=== PATIENT | male | born 1960 | race Caucasian/White ===

== ENCOUNTER 2024-03-07 14:33 | Emergency (ER) | payer OTHER, SELFPAY ==
[2024-03-07 14:33] VITALS: BMI 34.6
[2024-03-07 14:34] VITALS: BP 170/100
[2024-03-07 14:55] LABS: % Basophils 0.7 % (0-2); % Eosinophils 3.2 % (0-6); % Immature Granulocytes 0.2 % (0-0.5); % Lymphocytes 16.4 % (20.5-51.1); % Monocytes 8.5 % (1.7-9.3); Absolute Basophils 0.1 10^3/uL (0-0.2); Absolute Eosinophils 0.3 10^3/uL (0-0.7); Absolute Lymphocytes 1.3 10^3/uL (1.2-3.4); Absolute Monocytes 0.7 10^3/uL (0.1-0.6); Absolute Neutrophils 5.7 10^3/uL (1.4-6.5); Hemoglobin 14.9 g/dL (13.0-18.0); Mean Corp Hgb Conc. 35.5 g/dL (33.0-37.0); Mean Corpuscular Hgb 31.4 pg (27.0-31.0); Mean Corpuscular Volume 88.6 fL (80.0-94.0); Mean Platelet Volume 10.6 fL (7.4-10.4); Nucleated Red Blood Cells % 0 % (-); Platelet Count 233 10^3/uL (130-400); Red Blood Cell Count 4.74 10^6/uL (4.70-6.10); Red Cell Dist. Width 12.9 % (11.5-14.5)
[2024-03-07 15:10] LABS: ALT (SGPT) 22 U/L (0-50); AST (SGOT) 26 U/L (17-59); Albumin 4.4 g/dl (3.5-5.0); Alkaline Phosphatase 110 U/L (38-126); Blood Urea Nitrogen 19 mg/dl (9-20); Calcium 9.7 mg/dl (8.4-10.2); Carbon Dioxide 28 mmol/L (22-30); Chloride 104 mmol/L (98-107); Glucose 128 mg/dl (70-99); Potassium 4.3 mmol/L (3.5-5.1); Sodium 137 mmol/L (135-145); Total Bilirubin 0.8 mg/dl (0.2-1.3); Total Protein 6.9 g/dl (6.3-8.2); eGFR > 60.00
--- NOTE | 2024-03-07 16:07 | ED.SKININJ ---
HPI-Injury
<Chelsea Luz DICTATING MACHINE TYPIST - Last Filed: 03/08/24 10:22>
General
Chief Complaint: Skin Problem
Source: patient
Exam Limitations: none
Time Seen by Provider: 03/07/24 16:06
Nursing documentation reviewed up to this point in time: agreed with
History of Present Illness-Injury
Initial Injury comments:
64-year-old male with history of HTN, HLD presents stating he fell 4 rungs off a ladder 10 days ago, scraping his left ragland causing a superficial linear scrape. Next day went on a golf outing, has been washing and applying antibiotic ointment, doing
his usual ADL's, area becoming more red and swelling distally. Went to 4 days ago and put on Keflex 1000 mg BID has had 9 doses. Continues his ADL's, wading in his pool intermittently, and yesterday noted it was more swollen and more painful to
weight bear. Gets intermittent shooting pains in the ragland. Denies fever/chills. Admits he has not been elevating the leg as instructed at . Has also noted bruising of the tops of toes 2,3,4,5 and a band of discoloration across top of ankle that
has resolved. From abrasion to foot and ankle remain swollen.
Past History
<Chelsea Luz DICTATING MACHINE TYPIST - Last Filed: 03/08/24 10:22>
Past History
ED Past Medical History: HTN and Hypercholesterolemia
Social History
Tobacco: Non-smoker
Alcohol: Occasional
Personal:
Living: with family
Employment: Employed
Review of Systems
<Chelsea Luz DICTATING MACHINE TYPIST - Last Filed: 03/08/24 10:22>
Review of Systems
Allergies reviewed?: Yes
All Other Systems: ROS reviewed and negative except as documented in HPI and ROS
Constitutional: Denies fever or chills
Skin: Reports other (abrasion left ragland, swelling and mild erythema surrounding abrasion, edema ankle and foot)
Neurological: Reports no symptoms
Phy Exam
<Chelsea Luz DICTATING MACHINE TYPIST - Last Filed: 03/08/24 10:22>
General Physical Exam
General Presentation: well appearing and no apparent distress
General Skin: warm and dry
General Habitus: normal
General Mental: alert
General Hydration: appears well hydrated
Cardiovascular Exam
Cardiovascular Exam: regular rate/rhythm
Heart Sounds: normal
Pulmonary Exam
Pulmonary Exam: lungs clear
Musculoskeletal Exam
Musculoskeletal Exam: full ROM, edema (left lower leg below mid ragland abrasion) and neuro vasc intact
Skin Exam
Skin Exam: normal color, warm/dry and other (3 cm vertical abrasion intact scab. Surrounding mild swelling and redness to 4 cm out. No drainage. No lymphangitis. No calf tenderness. Mid calf to and ankle and dorsum of foot with +1 edema. Old
ecchymosis dorsum toes 2,3,4 of left foot)
Psychiatric Exam
Psychiatric Exam: normal mood/affect
Course
<Chelsea Luz, DICTATING MACHINE TYPIST - Last Filed: 03/08/24 10:22>
Orders/Labs/Results
Orders:
Orders
03/07/24 14:45
CMP [Comprehensive Metabolic Panel] Urgent
Complete Blood Count/With Diff Urgent
03/07/24 16:40
US Periph Venous LOWER Ext LT Urgent
Comment:
Reason For Exam: ankle, leg swelling, redness after ragland contusion
Abnormal Lab Results
03/07/24
14:45
MCH 31.4 H pg
(27.0-31.0)
MPV 10.6 H fL
(7.4-10.4)
Absolute Monos (auto) 0.7 H 10^3/uL
(0.1-0.6)
Lymphocytes % 16.4 L %
(20.5-51.1)
Glucose 128 H mg/dl
(70-99)
03/07/24 14:45
03/07/24 14:45
Vital Signs
Initial and Last Documented VS:
Initial Vital Signs
Temp Pulse Resp BP Pulse Ox
98.1 F 82 16 170/100 96
03/07/24 14:34 03/07/24 14:34 03/07/24 14:34 03/07/24 14:34 03/07/24 14:34
Last Documented Vital Signs
Temp Pulse Resp BP Pulse Ox
98.1 F 82 16 148/94 96
03/07/24 14:34 03/07/24 14:34 03/07/24 14:34 03/07/24 20:10 03/07/24 14:34
<AMAURI Macdonald - Last Filed: 03/07/24 20:06>
Orders/Labs/Results
Orders:
Orders
03/07/24 14:45
CMP [Comprehensive Metabolic Panel] Urgent
Complete Blood Count/With Diff Urgent
03/07/24 16:40
US Periph Venous LOWER Ext LT Urgent
Comment:
Reason For Exam: ankle, leg swelling, redness after ragland contusion
Abnormal Lab Results
03/07/24
14:45
MCH 31.4 H pg
(27.0-31.0)
MPV 10.6 H fL
(7.4-10.4)
Absolute Monos (auto) 0.7 H 10^3/uL
(0.1-0.6)
Lymphocytes % 16.4 L %
(20.5-51.1)
Glucose 128 H mg/dl
(70-99)
03/07/24 14:45
03/07/24 14:45
Vital Signs
Initial and Last Documented VS:
Initial Vital Signs
Temp Pulse Resp BP Pulse Ox
98.1 F 82 16 170/100 96
03/07/24 14:34 03/07/24 14:34 03/07/24 14:34 03/07/24 14:34 03/07/24 14:34
Last Documented Vital Signs
Temp Pulse Resp BP Pulse Ox
98.1 F 82 16 148/94 96
03/07/24 14:34 03/07/24 14:34 03/07/24 14:34 03/07/24 20:10 03/07/24 14:34
<Chelsea Luz, DICTATING MACHINE TYPIST - Last Filed: 03/08/24 10:22>
MDM/Problems Addressed
MDM/Problems Addressed:
64-year-old male with history of HTN, HLD presents stating he fell 4 rungs off a ladder 10 days ago, scraping his left ragland causing a superficial linear scrape. Next day went on a golf outing, has been washing and applying antibiotic ointment, doing
his usual ADL's, washed two cars yesterday, area becoming more red and swelling distally. y. Went to 4 days ago, had neg xray and put on Keflex 1000 mg BID has had 9 doses. Continues his ADL's, wading in his pool intermittently, and yesterday
noted it was more swollen and more painful to weight bear. Gets intermittent shooting pains in the ragland. Denies fever/chills. Admits he has not been elevating the leg as instructed at . Has also noted bruising of the tops of toes 2,3,4,5 and a
band of discoloration across top of ankle that has resolved. From abrasion to foot and ankle remain swollen.
Afebrile
He has been pretty active on his injured ragland
Exam consistent with contusion/hematoma mid ragland, dependent edema and bruising of tops of toes.
Inflammation immediately around the scab, redness and swelling distally, may be early cellulitis, not improving on the Keflex.
Encouraged to REST, compression stocking, elevate.
Change antibiotic to Doxycycline 100 BID x 7 days.
US neg for DVT
Chronic conditions affecting care: HTN
<AMAURI Macdonald - Last Filed: 03/07/24 20:06>
*Radiology
Radiology exam reviewed: radiology read reviewed (US- No sonographic evidence for left lower extremity deep venous thrombosis. )
*Critical Care Note
Total Time (30-74mins, 75-104mins- exclusive of procedures): Not Applicable
ED Attending Note
<Chelsea Luz NP - Last Filed: 03/08/24 10:22>
-
Portions of this chart may have been created with voice recognition software.� Occasional wrong word or��sound alike� substitutions may have occurred due to the inherent limitations of voice recognition software.
Discharge Plan
Departure
Patient Disposition: Home (Routine Discharge)
Date of Disposition: 03/07/24
Time of Disposition: 20:06
Patient with high blood pressure during this ER visit?: Yes
Condition: Good
Covid-19: Not Applicable
Discharge Problem:
Contusion of left lower leg, Abrasion of left lower leg, Pain and swelling of left lower leg
Instructions: Swelling, Cellulitis (Skin Infection), Adult (DC)
Prescriptions:
New
doxycycline hyclate 100 mg capsule
100 mg PO BID Qty: 14 0RF
No Action
latanoprost 0.005 % Drops
1 drp BOTH EYES QPM
atorvastatin 20 mg Tablet
20 mg PO HS
Theragen Tablet
1 tab PO DAILY
aspirin 81 mg Tablet,Delayed Release (Dr/Ec)
81 mg PO DAILY
amlodipine 10 mg Tablet
10 mg PO DAILY
cephalexin 500 mg Capsule
1,000 mg PO BID
Patient Comments:
03/07/24: filled 03/03/24 for 40 capsules, to take 2 capsules twice a day for 10 days
lisinopril 10 mg Tablet
10 mg PO DAILY
timolol maleate 0.5 % Gel Forming Solution
1 drp BOTH EYES DAILY
Referrals:
Adri Crawford, DO [Family Provider] - Follow up in 5-7 days
Activity Restrictions/Additional Instructions:
As we discussed, your ultrasound shows no clots
Stop the Keflex and start the Doxycycline.
I sent a prescription to your pharmacy for Doxycycline 100 mg twice daily for 7 days.
REST with the foot elevated to the level of or slightly above your heart as much as you can in the next 2 days to help minimize swelling.
Wear compression stocking until swelling is improved.
No lengthy walking or standing until swelling is improved.
The bruising on your toes is not worrisome. It will take a few weeks for it to resolve.
See your doctor in 4-5 days if not much improved by then.
Tylenol or Ibuprofen as needed for pain.
Return here immediately for worse swelling, redness spread UP the leg, fever/chills, nausea, vomiting or feeling sicker in any way.
Interventions
Interventions:
*Risk Screen - Suicide Last Done: 03/07/24 16:45
*General Assessment Last Done: 03/07/24 14:34
*Neglect/Abuse Screening Last Done: 03/07/24 16:45
ED- Fall Risk Assessment Last Done: 03/07/24 16:45
*ED COVID-19 Vaccine History Last Done: 03/07/24 14:34
*Nursing Disposition Last Done: 03/07/24 20:10
ED-Skin Assessment Last Done: 03/07/24 16:45
Discharge Date and Time
Discharge Date/Time: 03/07/24 20:11
Print Language: SWISS
[2024-03-07 20:10] VITALS: BP 148/94
== END 2024-03-07 20:11 | disposition home or self-care (01) ==
LOC: EMR 14:33
PROVIDERS: Emergency Medicine; EMERGENCY PHYSICIAN Emergency Medicine; FAMILY PHYSICIAN Family Medicine
DX: S80.812A Abrasion, left lower leg, initial encounter (principal); S80.12XA Contusion of left lower leg, initial encounter; M79.662 Pain in left lower leg; R22.42 Localized swelling, mass and lump, left lower limb; W11.XXXA Fall on and from ladder, initial encounter; I10 Essential (primary) hypertension; E78.5 Hyperlipidemia, unspecified
CPT/HCPCS: 99284; 80053; 85025; 93971